=== PATIENT | female | born 1990 | race Caucasian/White ===

== ENCOUNTER 2024-04-09 16:09 | Emergency (ER) | payer OTHER ==
[~2024-04-09] VITALS: Ht 162.6 cm; Wt 88.9 kg
[~2024-04-09 16:09] MED LIST: AMOXICILLIN; EXCEDRIN; SMZ/TMP
[2024-04-09 16:17] VITALS: BP 137/83; PULSE 90; RESP 18; TEMP 98; O2SAT 99
[2024-04-09] MEDS: KETOROLAC 30 MG/ML VIAL IM ONE (17:44)
[2024-04-09 18:17] LABS: APPEARANCE,URINE TURBID (CLEAR); BILIRUBIN,URINE NEGATIVE (NEGATIVE); BLOOD, URINE TRACE-I (NEGATIVE); COLOR,URINE YELLOW (YELLOW); LEUKOCYTE ESTERASE ,URINE TRACE (NEGATIVE); NITRITE, URINE NEGATIVE (NEGATIVE); PROTEIN,URINE NEGATIVE (NEGATIVE); UGLUCOSE NEGATIVE (NEGATIVE); UROBILINOGEN,URINE 0.2 EU/dL (0.2 - 1)
[2024-04-09 18:36] LABS: BACTERIA,URINE 10-30 (MOD) /HPF (None Seen); SQUAMOUS EPITHELIAL CELL,UR 4-10 (MOD) /LPF (0-3 (FEW))
[2024-04-09] MEDS ORDERED: CEPH250C16 PO (18:40)
[2024-04-09] MEDS ORDERED: LID5T TP (18:40)
[2024-04-09] MEDS ORDERED: NAPR-337 PO (18:40)
== END 2024-04-09 18:47 | disposition home or self-care (01) ==
LOC: MED 16:09
DX: S29.012A Strain of muscle and tendon of back wall of thorax, initial encounter (principal); N30.00 Acute cystitis without hematuria; R07.81 Pleurodynia; Z79.899 Other long term (current) drug therapy; X58.XXXA Exposure to other specified factors, initial encounter; Y92.89 Other specified places as the place of occurrence of the external cause; Y93.89 Activity, other specified; Y99.8 Other external cause status
CPT/HCPCS: 71101; 72072; 81001; 81025; 87086; 96372; 99284; J1885